=== PATIENT | male | born 1985 | race African-American/Black ===

== ENCOUNTER 2019-09-18 23:32 | Emergency (ER) | payer OTHER ==
[~2019-09-18] VITALS: Ht 185.4 cm; Wt 100.0 kg
[2019-09-19] MEDS ORDERED: KETOROLAC 30MG/ML VIAL IV STA (00:03)
[2019-09-19] MEDS ORDERED: SODIUM CHLORIDE 0.9% 1,000 ML IV ONE (00:03)
[2019-09-19] MEDS ORDERED: ONDANSETRON HCL 4MG/2ML INJ IV STA (00:03)
[2019-09-19] MEDS ORDERED: ACETAMINOPHEN 325MG TABLET PO ONE (00:15)
[2019-09-19 01:54] LABS: HEMATOCRIT. 45.9 % (42.0-52.0); HEMOGLOBIN. 15.8 g/dL (14.0-18.0); MEAN CORPUSCULAR HEMOGLOBIN 31.5 pg (28.0-32.0); MEAN CORPUSCULAR VOLUME 91.2 fL (80.0-94.0); PLATELET 231 x1000/uL (130-400); RED BLOOD CELL COUNT 5.04 mill/uL (4.7-6.1); RED CELL DISTRIBUTION WIDTH 14.5 % (11.6-14.6)
[2019-09-19 02:01] LABS: CHLORIDE 104 mEq/L (98-107)
[2019-09-19 02:06] LABS: ETHANOL BLOOD < 10 mg/dL
[2019-09-19 03:49] LABS: PLATELET ESTIMATE NORMAL
[2019-09-19 04:51] VITALS: BP 127/74
== END 2019-09-19 04:52 | disposition home or self-care (01) ==
LOC: ER 23:32
DX: R10.9 Unspecified abdominal pain (principal)
CPT/HCPCS: 36415; 71045; 74176; 80053; 80320; 83690; 85025; 96361; 96374; 96375; 99285; J1885; J2405; J7030; G0480